=== PATIENT | female | born 1965 | race Caucasian/White ===

== ENCOUNTER 2023-09-19 12:28 | Emergency (ER) | payer OTHER, SELFPAY ==
[2023-09-19 12:31] VITALS: BP 121/69
--- NOTE | 2023-09-19 14:27 | ED.GENMED ---
History of Present Illness
General
Chief Complaint: Eye Problems
Source: patient
Exam Limitations: none
Time Seen by Provider: 09/19/23 13:31
Nursing documentation reviewed up to this point in time: agreed with
Travel History
Have you had any contact with someone who has COVID-19?: No
Do you have any symptoms of coronavirus? Fever > 100 degrees, chills, cough, shortness of breath, sore throat, loss of taste or smell, muscle aches, or headache?: No
History of Present Illness
History of Present Illness:
Patient presents to ED secondary to sudden onset of 'lightning, arc sensation' in her left eye, while she was at home around 10 AM. Denies dizziness. Denies headache. Denies blurred vision. Denies difficulty with speech. Denies difficulty with
ambulation. Denies previous history of similar symptoms. However, patient is concerned as her sister explains similar symptoms last year and needed to be treated for retinal detachment. She spoke with on-call veterinary microbiologist who recommended that
patient to be evaluated this afternoon.
Past History
Social History
Tobacco: Non-smoker
Personal:
Living: with family
Employment: Employed
Review of Systems
Review of Systems
Allergies reviewed?: Yes
All Other Systems: ROS reviewed and negative except as documented in HPI and ROS
Constitutional: Reports no symptoms
Skin: Reports no symptoms
Neurological: Reports other (lightening sensation in left eye.)
Phy Exam
Physical Exam
Physical Exam:
General: well nourished female, in no distress. afebrile
Heent: nc/at. eomi. perrla
Neck: normal range of motion.
Neuro: aao x 3. no focal neurological deficit. normal peripheral vision.
Skin: no rash
Psych: pleasant and cooperative.
Course
Orders/Labs/Results
Orders:
Orders
09/19/23 13:31
Visual Acuity- Treatment ONCE
Vital Signs
Initial and Last Documented VS:
Initial Vital Signs
Temp Pulse Resp BP Pulse Ox
98.2 F 76 18 121/69 99
09/19/23 12:31 09/19/23 12:31 09/19/23 12:31 09/19/23 12:31 09/19/23 12:31
Last Documented Vital Signs
Temp Pulse Resp BP Pulse Ox
98.2 F 74 17 109/68 99
09/19/23 12:31 09/19/23 14:51 09/19/23 14:51 09/19/23 14:51 09/19/23 14:51
MDM/Problems Addressed
MDM/Problems Addressed:
Discussed with fellow @ [facility] who advised patient f/u @ [facility] upon discharge. Pt expresses understanding at time of discharge.
*Critical Care Note
Total Time (30-74mins, 75-104mins- exclusive of procedures): Not Applicable
ED Attending Note
-
Portions of this chart may have been created with voice recognition software.� Occasional wrong word or��sound alike� substitutions may have occurred due to the inherent limitations of voice recognition software.
Discharge Plan
Departure
Patient Disposition: Home (Routine Discharge)
Date of Disposition: 09/19/23
Time of Disposition: 15:28
Patient with high blood pressure during this ER visit?: Yes
Discharge Problem:
Floaters in visual field, Retinal and vitreous disorder
Prescriptions:
No Action
albuterol sulfate 1 PUFF HFA aerosol inhaler
2 puff inhalation R Q4HPRN PRN (Reason: SOB/wheeze)
acetaminophen-codeine 1 TABLET tablet
1 tab PO Q4HPRN PRN (Reason: pain or cough) Qty: 30 0RF
prednisone 50 MG tablet
50 mg PO DAILY Qty: 5 0RF
albuterol sulfate [Proventil HFA] 90 MCG/PUFF HFA aerosol inhaler
2 puff inhalation Q4H PRN (Reason: SOB, wheezing) Qty: 1 0RF
Referrals:
Ephraim Allison DO [Family Provider] -
Activity Restrictions/Additional Instructions:
As discussed, please follow up with [facility] upon discharge, for further evaluation and treatment.
Interventions
Interventions:
*Risk Screen - Suicide Last Done: 09/19/23 12:31
*General Assessment Last Done: 09/19/23 12:31
*Neglect/Abuse Screening Last Done: 09/19/23 12:31
ED- Fall Risk Assessment Last Done: 09/19/23 15:30
*ED COVID-19 Vaccine History Last Done: 09/19/23 14:49
*Nursing Disposition Last Done: 09/19/23 15:30
Discharge Date and Time
Discharge Date/Time: 09/19/23 15:30
Print Language: SERBIAN
[2023-09-19 14:48] VITALS: BMI 23.1
[2023-09-19 14:51] VITALS: BP 109/68
== END 2023-09-19 15:30 | disposition home or self-care (01) ==
LOC: EMR 12:28
PROVIDERS: EMERGENCY PHYSICIAN Emergency Medicine; FAMILY PHYSICIAN Family Medicine
DX: H43.392 Other vitreous opacities, left eye (principal); H43.9 Unspecified disorder of vitreous body; R03.0 Elevated blood-pressure reading, without diagnosis of hypertension
CPT/HCPCS: 99282